=== PATIENT | female | born 1990 | race African-American/Black ===

== ENCOUNTER 2016-08-21 13:31 | Emergency (ER) | payer OTHER ==
[~2016-08-21] VITALS: Ht 162.6 cm; Wt 63.5 kg
[~2016-08-21 13:31] MED LIST: APAP500 PO; CIPROFLOXACIN500 M1 PO; DERMOPLAST SPRA56 ML; FLAGYL500 MG PO; HYDROCHLOROTHIA25 M1 PO; IBUPROFEN 600600 M1 PO; LANOLIN56 GM; MACROBID 100 M100 M1 PO; NAPROSYN500 MG PO; NOHOMEMEDICATIONS; NORCO 5-325 TA1 EACH PO; ONDANSETRON HCL4 M2 PO; PERCOCET 5-3251 EACH PO; PHENERGAN 25 MG25 M1 PO; TRINATE TABLET1 TAB PO; ULTRAM 50MG TAB50 MG PO; VICODIN 5-5001 EACH PO; ZOFRAN ODT4 MG PO
[2016-08-21 13:33] VITALS: BP 114/73
== END 2016-08-21 14:29 | disposition home or self-care (01) ==
LOC: ER 13:31
DX: S61.304A Unspecified open wound of right ring finger with damage to nail, initial encounter (principal); L08.9 Local infection of the skin and subcutaneous tissue, unspecified; Z88.0 Allergy status to penicillin; Z88.1 Allergy status to other antibiotic agents; X58.XXXA Exposure to other specified factors, initial encounter; Y93.89 Activity, other specified; Y92.89 Other specified places as the place of occurrence of the external cause; Y99.9 Unspecified external cause status

== ENCOUNTER 2016-09-04 10:46 | Emergency (ER) | payer OTHER ==
[~2016-09-04] VITALS: Ht 157.5 cm; Wt 54.4 kg
[2016-09-04 11:23] LABS: URINE BILIRUBIN NEGATIVE (Negative); URINE BLOOD TRACE (Negative); URINE COLOR YELLOW; URINE GLUCOSE-RANDOM* NEGATIVE (Negative); URINE KETONES NEGATIVE (Negative); URINE NITRITE NEGATIVE (Negative); URINE PROTEIN (DIPSTICK) NEGATIVE (Negative); URINE UROBILINOGEN 0.2 E.U./dl (0.2-1.0)
[2016-09-04 11:35] LABS: CASTS None Seen /LPF (None Seen); CRYSTALS None Seen /LPF (None Seen); SQUAMOUS >10 Many /LPF (0-3); URINE RBC 0-2 Rare /HPF (0-2); URINE WBC 0-5 Rare /HPF (0-5)
[2016-09-04 12:30] LABS: ABSOLUTE NEUTROPHILS 1.8 thou/uL (1.4-8.2); BASOPHILS 0.9 % (0.0-2.0); EOSINOPHILS 1.2 % (0.0-3.0); HEMATOCRIT 38.8 % (37.0-47.0); MANUAL DIFF NO; MCH 30.1 pg (26.0-34.0); MCHC 33.5 g/dL (28.0-37.0); MCV 89.9 fL (80.0-100.0); MONOCYTES 10.5 % (1.0-8.0); PLATELET COUNT 232 thou/uL (150-400); POLYS 39.4 % (36.0-66.0); RBC 4.31 mil/uL (4.20-5.00); RDW 13.8 % (10.5-14.5); WBC 4.6 thou/uL (4.0-11.0)
[2016-09-04] MEDS ORDERED: TIZANIDINE HCL4 MG PO (13:40)
[2016-09-04] MEDS ORDERED: ULTRAM 50MG TAB50 MG PO (13:40)
[2016-09-04 13:56] VITALS: BP 121/91
== END 2016-09-04 13:58 | disposition home or self-care (01) ==
LOC: ER 10:46
PROVIDERS: Nurse Practitioner
DX: N93.8 Other specified abnormal uterine and vaginal bleeding (principal); Z88.0 Allergy status to penicillin; Z88.1 Allergy status to other antibiotic agents

== ENCOUNTER 2017-01-16 23:35 | Emergency (ER) | payer OTHER ==
[~2017-01-16] VITALS: Ht 157.5 cm; Wt 52.2 kg
[~2017-01-16 23:35] MED LIST changes: +TIZANIDINE HCL4 MG PO
[2017-01-16 23:57] LABS: URINE BILIRUBIN NEGATIVE (Negative); URINE BLOOD NEGATIVE (Negative); URINE COLOR YELLOW; URINE GLUCOSE-RANDOM* NEGATIVE (Negative); URINE KETONES TRACE (Negative); URINE PROTEIN (DIPSTICK) NEGATIVE (Negative); URINE SPECIFIC GRAVITY >= 1.030 (1.003-1.035); URINE UROBILINOGEN 0.2 E.U./dl (0.2-1.0)
[2017-01-17 00:07] LABS: URINE LEUKOCYTES-REFLEX 1+ (Negative)
[2017-01-17 00:10] LABS: CASTS None Seen /LPF (None Seen); SQUAMOUS >10 Many /LPF (0-3)
[2017-01-17 00:10] LABS: BASOPHILS 0.8 % (0.0-2.0); HEMATOCRIT 36.2 % (37.0-47.0); LYMPHOCYTES 48.7 % (24.0-44.0); MCH 30.1 pg (26.0-34.0); MCHC 33.2 g/dL (28.0-37.0); MCV 90.7 fL (80.0-100.0); MONOCYTES 9.1 % (1.0-8.0); PLATELET COUNT 209 thou/uL (150-400); POLYS 39.4 % (36.0-66.0); RBC 3.99 mil/uL (4.20-5.00); RDW 13.5 % (10.5-14.5); WBC 5.1 thou/uL (4.0-11.0)
[2017-01-17 00:11] LABS: CRYSTALS None Seen /LPF (None Seen); URINE RBC None Seen /HPF (0-2); URINE WBC-REFLEX 6-15 Few /HPF (0-5)
[2017-01-17 00:13] LABS: MANUAL DIFF NO
[2017-01-17 00:20] LABS: CALCIUM 8.6 mg/dL (8.5-10.1); CREATININE 0.9 mg/dL (0.6-1.0); POTASSIUM 3.6 mmol/L (3.5-5.1)
[2017-01-17 00:26] LABS: ALBUMIN 3.8 g/dL (3.4-5.0); TOTAL BILIRUBIN 0.2 mg/dL (<0.1-1.0); TOTAL PROTEIN 6.5 g/dL (6.4-8.2)
[2017-01-17] MEDS ORDERED: PRILOSEC 20 MG20 MG PO (00:49)
[2017-01-17] MEDS ORDERED: TRAMADOL 50 MG50 MG PO (00:49)
[2017-01-17] MEDS ORDERED: ZOFRAN ODT8 MG PO (00:49)
[2017-01-17 01:29] VITALS: BP 117/73
== END 2017-01-17 01:30 | disposition home or self-care (01) ==
LOC: ER 23:35
PROVIDERS: Emergency Medicine
DX: R11.2 Nausea with vomiting, unspecified (principal); R19.7 Diarrhea, unspecified; R10.11 Right upper quadrant pain; F10.99 Alcohol use, unspecified with unspecified alcohol-induced disorder; Z88.1 Allergy status to other antibiotic agents; Z88.0 Allergy status to penicillin

== ENCOUNTER 2017-08-02 01:06 | Emergency (ER) | payer OTHER ==
[~2017-08-02] VITALS: Ht 157.5 cm; Wt 52.6 kg
[~2017-08-02 01:06] MED LIST changes: +PRILOSEC 20 MG20 MG PO; +TRAMADOL 50 MG50 MG PO; +ZOFRAN ODT8 MG PO
[2017-08-02 01:40] LABS: URINE BILIRUBIN NEGATIVE (Negative); URINE BLOOD NEGATIVE (Negative); URINE CLARITY CLEAR; URINE COLOR YELLOW; URINE GLUCOSE-RANDOM* NEGATIVE (Negative); URINE KETONES NEGATIVE (Negative); URINE LEUKOCYTES-REFLEX NEGATIVE (Negative); URINE NITRITE-REFLEX NEGATIVE (Negative); URINE PROTEIN (DIPSTICK) NEGATIVE (Negative); URINE SPECIFIC GRAVITY >= 1.030 (1.005-1.035); URINE UROBILINOGEN 0.2 E.U./dl (0.2-1.0)
[2017-08-02] MEDS ORDERED: ALOE VERA25 MG PO (01:54)
[2017-08-02] MEDS ORDERED: EVENING PRIMRO500 M1 PO (01:55)
[2017-08-02] MEDS ORDERED: RED CLOVER (01:55)
[2017-08-02 02:41] LABS: ABSOLUTE NEUTROPHILS 3.6 thou/uL (1.4-8.2); BASOPHILS 0.6 % (0.0-2.0); CALCIUM 9.2 mg/dL (8.5-10.1); CREATININE 0.9 mg/dL (0.6-1.0); EOSINOPHILS 0.8 % (0.0-3.0); HEMATOCRIT 40.7 % (37.0-47.0); HEMOGLOBIN 13.4 gm/dL (12.0-15.0); LYMPHOCYTES 27.8 % (24.0-44.0); MCH 30.2 pg (26.0-34.0); MCHC 32.9 g/dL (28.0-37.0); MCV 91.9 fL (80.0-100.0); MONOCYTES 7.1 % (1.0-8.0); PLATELET COUNT 224 thou/uL (150-400); POLYS 63.7 % (36.0-66.0); POTASSIUM 3.9 mmol/L (3.5-5.1); RBC 4.43 mil/uL (4.20-5.00); RDW 13.2 % (10.5-14.5); WBC 5.7 thou/uL (4.0-11.0)
[2017-08-02 02:46] LABS: ALBUMIN 3.7 g/dL (3.4-5.0); TOTAL BILIRUBIN 0.3 mg/dL (<0.1-1.0); TOTAL PROTEIN 7.5 g/dL (6.4-8.2)
[2017-08-02 04:42] VITALS: BP 116/72
[2017-08-03 14:12] LABS: NEISSERIA GONORRHEA-PCR Negative (Negative)
== END 2017-08-02 04:43 | disposition home or self-care (01) ==
LOC: ER 01:06
PROVIDERS: Emergency Medicine
DX: R10.2 Pelvic and perineal pain (principal); Z88.0 Allergy status to penicillin; Z88.1 Allergy status to other antibiotic agents

== ENCOUNTER 2017-11-13 11:07 | Emergency (ER) | payer OTHER ==
[~2017-11-13] VITALS: Ht 157.5 cm; Wt 52.6 kg
[~2017-11-13 11:07] MED LIST changes: +ALOE VERA25 MG PO; +EVENING PRIMRO500 M1 PO; +RED CLOVER
[2017-11-13 11:26] LABS: URINE BILIRUBIN NEGATIVE (Negative); URINE BLOOD 3+ (Negative); URINE CLARITY SL CLOUDY; URINE COLOR YELLOW; URINE GLUCOSE-RANDOM* NEGATIVE (Negative); URINE KETONES NEGATIVE (Negative); URINE NITRITE-REFLEX NEGATIVE (Negative); URINE PROTEIN (DIPSTICK) NEGATIVE (Negative); URINE SPECIFIC GRAVITY >= 1.030 (1.005-1.035); URINE UROBILINOGEN 0.2 E.U./dl (0.2-1.0)
[2017-11-13 11:27] LABS: URINE LEUKOCYTES-REFLEX 1+ (Negative)
[2017-11-13 11:32] LABS: ABSOLUTE NEUTROPHILS 3.5 thou/uL (1.4-8.2); BASOPHILS 0.9 % (0.0-2.0); EOSINOPHILS 0.8 % (0.0-3.0); HEMATOCRIT 37.7 % (37.0-47.0); HEMOGLOBIN 12.5 gm/dL (12.0-15.0); LYMPHOCYTES 32.8 % (24.0-44.0); MCH 30.5 pg (26.0-34.0); MCHC 33.3 g/dL (28.0-37.0); MCV 91.6 fL (80.0-100.0); MONOCYTES 6.4 % (1.0-8.0); PLATELET COUNT 235 thou/uL (150-400); POLYS 59.1 % (36.0-66.0); RBC 4.11 mil/uL (4.20-5.00); WBC 5.9 thou/uL (4.0-11.0)
[2017-11-13 11:36] LABS: CASTS None Seen /LPF (None Seen); CRYSTALS None Seen /LPF (None Seen); SQUAMOUS >10 Many /LPF (0-3)
[2017-11-13 11:37] LABS: CALCIUM 8.6 mg/dL (8.5-10.1); CREATININE 0.9 mg/dL (0.6-1.0); POTASSIUM 3.7 mmol/L (3.5-5.1)
[2017-11-13 11:37] LABS: URINE WBC-REFLEX 6-15 Few /HPF (0-5)
[2017-11-13 11:38] LABS: URINE RBC 3-10 Few /HPF (0-2)
[2017-11-13 11:43] LABS: TOTAL BILIRUBIN 0.2 mg/dL (<0.1-1.0); TOTAL PROTEIN 7.6 g/dL (6.4-8.2)
[2017-11-13] MEDS ORDERED: PHENERGAN 25 MG25 M1 PO (13:34)
[2017-11-13 14:08] VITALS: BP 134/84
== END 2017-11-13 14:09 | disposition home or self-care (01) ==
LOC: ER 11:07
PROVIDERS: Physician Assistant
DX: R11.2 Nausea with vomiting, unspecified (principal); R10.13 Epigastric pain; Z88.1 Allergy status to other antibiotic agents; Z88.0 Allergy status to penicillin

== ENCOUNTER 2018-04-12 10:10 | Emergency (ER) | payer OTHER ==
[~2018-04-12] VITALS: Ht 157.5 cm; Wt 54.4 kg
[2018-04-12 10:33] LABS: URINE BILIRUBIN NEGATIVE (Negative); URINE BLOOD NEGATIVE (Negative); URINE CLARITY CLEAR; URINE COLOR YELLOW; URINE GLUCOSE-RANDOM* NEGATIVE (Negative); URINE KETONES NEGATIVE (Negative); URINE NITRITE-REFLEX NEGATIVE (Negative); URINE PROTEIN (DIPSTICK) NEGATIVE (Negative); URINE SPECIFIC GRAVITY >= 1.030 (1.005-1.035); URINE UROBILINOGEN 0.2 E.U./dl (0.2-1.0)
[2018-04-12 10:35] LABS: URINE LEUKOCYTES-REFLEX TRACE (Negative)
[2018-04-12] MEDS ORDERED: NOHOMEMEDICATIONS (10:55)
[2018-04-12 11:15] LABS: ABSOLUTE NEUTROPHILS 7.5 thou/uL (1.4-8.2); BASOPHILS 0.2 % (0.0-2.0); EOSINOPHILS 0.3 % (0.0-3.0); HEMATOCRIT 42.2 % (37.0-47.0); HEMOGLOBIN 13.7 gm/dL (12.0-15.0); MCH 29.2 pg (26.0-34.0); MCHC 32.5 g/dL (28.0-37.0); MCV 89.9 fL (80.0-100.0); MONOCYTES 2.5 % (1.0-8.0); PLATELET COUNT 297 thou/uL (150-400); RDW 13.7 % (10.5-14.5); WBC 8.4 thou/uL (4.0-11.0)
[2018-04-12 11:22] LABS: CALCIUM 8.8 mg/dL (8.5-10.1); CREATININE 1.1 mg/dL (0.6-1.0); POTASSIUM 3.9 mmol/L (3.5-5.1)
[2018-04-12 11:28] LABS: ALBUMIN 4.2 g/dL (3.4-5.0); TOTAL BILIRUBIN 0.3 mg/dL (<0.1-1.0); TOTAL PROTEIN 8.3 g/dL (6.4-8.2)
[2018-04-12] MEDS ORDERED: ZOFRAN ODT4 MG PO (12:10)
[2018-04-12 12:25] VITALS: BP 110/74
== END 2018-04-12 12:26 | disposition home or self-care (01) ==
LOC: ER 10:10
PROVIDERS: Physician Assistant
DX: R11.2 Nausea with vomiting, unspecified (principal); R10.13 Epigastric pain; Z88.1 Allergy status to other antibiotic agents; Z88.0 Allergy status to penicillin